=== PATIENT | female | born 1995 | race Caucasian/White ===

== ENCOUNTER 2018-01-07 12:59 | Outpatient (CLI) | payer MEDICAID ==
--- NOTE | 2018-01-07 14:26 | ULT ---
STANDARD COMPLETE OB ULTRASOUND: HISTORY: Third trimester. No care. COMPARISON: None. TECHNIQUE: Real-time, hernández-scale, and color evaluation with spectral analysis of the gravid uterus is performed. FINDINGS: Single viable intrauterine . Average ultrasound age 38 weeks and 0 days. Estimated date of delivery 01/21/2018. Estimated weight 7 pounds. Biparietal diameter 38 weeks 3 days (9.35 cm ). Head circumference 39 weeks 4 days (34.41 cm). Abdominal circumference 37 weeks 0 days (33.11 cm ). Femur length 36 weeks 2 days (7.08 cm). The position is vertex. The placenta is posterior. Amniotic fluid is adequate. The visualize d spine, four chamber heart, kidneys, stomach, and_ three vessel cord are unremarkable. IMPRESSION: Normal single viable intrauterine . POS: LEE
== END 2018-01-07 13:00 | disposition home or self-care (01) ==
LOC: SCSULT 12:59
PROVIDERS: ATTEND Nurse Practitioner
DX: Z34.82 Encounter for supervision of other normal pregnancy, second trimester (principal)
CPT/HCPCS: 76805